=== PATIENT | female | born 1955 | race Caucasian/White ===

== ENCOUNTER 2018-03-21 12:09 | Emergency (ER) | payer MEDICARE, OTHER ==
[~2018-03-21] VITALS: Ht 172.7 cm; Wt 65.8 kg
--- NOTE | 2018-03-21 12:24 | NUR ---
pt galindo 89 from [facility] s/p botox treatment for overactive bladder earlier today. pt became hypoglycemid over ther down to 26, was treated with D5 600 ml. paramedics gave D10. while in er, pt axox4. vss.
--- NOTE | 2018-03-21 13:24 | NUR ---
bs =[id number] Addendum: 03/21/18 at 1326 by TITA md notifed.
--- NOTE | 2018-03-21 13:39 | NUR ---
Patient discharged to home in stable conditon. Written and verbal after care instructions given. Patient verbalizes understanding of instructions.pt says feels good, ready to go home. pt daughter at bedside to take the pt home.
[2018-03-21 13:40] VITALS: BP 101/72
== END 2018-03-21 13:44 | disposition home or self-care (01) ==
LOC: ER 12:09
DX: E16.2 Hypoglycemia, unspecified (principal)
CPT/HCPCS: A4663